=== PATIENT | male | born 1975 | race Caucasian/White ===

== ENCOUNTER 2022-02-18 17:41 | Emergency (ER) | payer OTHER, SELFPAY ==
--- NOTE | ~2022-02-18 | XR_ITS ---
XR hand RT min 3V 02/18/2022 17:44 Indication: Dog bite. Procedure: 3 views right hand Comparison: No prior studies for comparison. Findings: There is a minimally displaced fracture of the fourth distal phalanx. No other fracture. Mi ld soft tissue swelling. No foreign bodies. Impression: 1: Mildly displaced extra-articular fracture right fourth distal phalanx. Reviewed, dictated and finalized at location A. Impression: 1: Mildly displaced extra-articular fracture right fourth distal phalanx.
[2022-02-18 17:21] VITALS: BP 99/69; PULSE 56; RESP 16; TEMP 36.7; O2SAT 100
--- NOTE | 2022-02-18 17:32 | ED.GENADULT ---
HPI - General Adult General Chief complaint: Animal Bite Stated complaint: dog bite History of Present Illness HPI narrative: 46-year-old male presents the emergency room for evaluation of a dog bite to his right fourth finger. Patient states that he was breaking up a dog fight, 1 was a known pitbull terrier whose shots are up-to-date. Patient states his tetanus shot is up-to-date. Related Data Allergies Allergy/AdvReac Type Severity Reaction Status Date / Time No Known Allergies Allergy Unknown Verified 02/18/22 17:28 Review of Systems Review of Systems: CONSTITUTIONAL: Denies fever, chills, or sweats. EYES: Denies visual changes, redness, or discharge. ENT: Denies rhinorrhea, congestion, sore throat, or otalgia. CARDIOVASCULAR: Denies chest pain, palpitations, or edema. RESPIRATORY: Denies cough or dyspnea. GASTROINTESTINAL: Denies abdominal pain, nausea, vomiting, or diarrhea. GENITOURINARY: Denies dysuria or hematuria. SKIN: 2 lacerations to right fourth finger MUSCULOSKELETAL: Denies back pain, joint pain, or myalgia. NEUROLOGIC: Denies headache, numbness, dizziness, or weakness. PSYCHIATRIC: Denies anxiety or depression. Exam Narrative: GENERAL: Well-appearing, well-nourished, and in no acute distress. HEAD: Normocephalic, atraumatic. EYES: PERRLA and EOMI. ENT: Nares clear, no rhinorrhea or epistaxis. Mucous membranes moist. Oropharynx without tonsillar hypertrophy exudate or other lesions. Bilateral TMs pearly jeffery nonbulging NECK: Supple. No adenopathy or masses. No carotid bruits or JVD CHEST: Clear to auscultation. No respiratory distress. No wheezes rales or rhonchi HEART: Regular rate and rhythm. No murmur heard. Normal peripheral pulses. ABDOMEN: Soft, nontender, nondistended, normal active bowel sounds. EXTREMITIES: Normal range of motion. No edema. SKIN: Left fourth digit: 3 cm curved laceration to the fleming surface and 1 cm linear laceration to the lateral surface of the tip of the fourth digit with no nail involvement, neurovascular is intact distally, full range of motion of the DIP joint NEURO: No focal deficits. Alert and oriented x3. PSYCH: Normal mood and affect. Course Course Emergency Course: 1814: Discussed case with Ortho hand Jefferson at [facility]. MD Jefferson recommends thorough wash out, IV ABX, oral Augmentin, and retention sutures. Recommend f/u with patient in clinic in 4 days. Vital Signs Vital signs: Vital Signs Temperature 36.7 C 02/18/22 17:21 Pulse Rate 56 L 02/18/22 17:21 Respiratory Rate 16 02/18/22 17:21 Blood Pressure 99/69 L 02/18/22 17:21 Pulse Oximetry 100 02/18/22 17:21 Oxygen Delivery Room Air 02/18/22 17:21 Temperature 36.7 C 02/18/22 17:21 Pulse Rate 56 L 02/18/22 17:21 Respiratory Rate 16 02/18/22 17:21 Blood Pressure 99/69 L 02/18/22 17:21 Pulse Oximetry 100 02/18/22 17:21 Oxygen Delivery Room Air 02/18/22 17:21 Procedures Laceration Laceration 1: Date: 02/18/22 Time: 19:11 Site: hand Side (If applicable): right Size (cm): 3 Description: irregular Depth: simple, single layer Local Anesthetic: lidocaine 1% Amount of anesthesia used (mL): 5 Pre-repair: irrigated extensively and deep structures intact ====== Skin Level ====== Skin layer closed with: nylon Size (cm): 5-0 Number of sutures: 3 Technique: simple, interrupted ====== Subcutaneous Layer ====== ====== Muscle Layer ====== ====== Tendon Layer ====== Laceration 2: Date: 02/18/22 Time: 19:13 Site: hand Side (If applicable): right Size (cm): 1.2 Description: linear Depth: simple, single layer Local Anesthetic: lidocaine 1% Amount of anesthesia used (mL): 5 Pre-repair: irrigated extensively and deep structures intact ====== Skin Level ====== Skin layer closed with: nylon
[2022-02-18] MEDS: AMPICILLIN SULB 3 GM/NS 100 ML 3 GM/100 ML VIAL IVPB (18:25)
[2022-02-18 19:46] VITALS: BP 105/74; PULSE 84; RESP 18; O2SAT 97
== END 2022-02-18 19:47 | disposition home or self-care (01) ==
PROVIDERS: Emergency Provider Nurse Practitioner Family
DX: S62.634B Displaced fracture of distal phalanx of right ring finger, initial encounter for open fracture (principal); W54.0XXA Bitten by dog, initial encounter
CPT/HCPCS: 12002; 29130; 73130; 96365; 99284; J0295